=== PATIENT | male | born 1970 | race Caucasian/White ===

== ENCOUNTER → 2024-06-17 | Outpatient (CLI) | payer BC ==
--- NOTE | 2024-06-17 11:21 | CT ---
EXAMINATION TYPE: CT abdomen pelvis wo con DATE OF EXAM: 06/17/2024 COMPARISON: None CLINICAL INDICATION: Male, 54 years old with history of R10.32 LLQ pain; PHH, LLQ pain TECHNIQUE: CT scan of the abdomen and pelvis is performed without oral or IV contrast. CT DLP: [address] CTDI: mGy Automated exposure control for dose reduction was used. FINDINGS: Within the limitations of a non-contrast study, the following observations are made. The lungs are clear. Gallbladder is normal and there is no gallstone, wall thickening, pericholecystic fluid or distention . There is no biliary ductal dilatation. There is no organomegaly of the liver, pancreas, spleen or adrenal glands. There are no renal calcifications or hydronephrosis. The caliber of the abdominal aorta is normal and there is no retroperitoneal adenopathy or hemorrhage . The bowel loops are normal in caliber is no evidence of obstruction. No inflammatory changes are iden tified in the mesentery and there is no free intraperitoneal air or fluid. There is no pelvic mass, free fluid, abscess or adenopathy. There is mild diverticulosis of the colon without CT evidence of diverticulitis. There is mild prosthetic enlargement. The osseous structures and soft tissues are unremarkable. IMPRESSION: 1. No acute changes within the abdomen or pelvis. 2. No renal calcification or hydronephrosis. 3. Mild diverticulosis without CT evidence of diverticulitis. 4. Mild prostatic hypertrophy. [facility], , 06/17/2024 11:19 AM
[2024-06-17 16:01] LABS: HGB 16.9 g/dL (13.0-17.0); MCH 31.2 pg (27.0-32.0); MCHC 33.8 g/dL (32.0-37.0); MCV 92.3 FL (80.0-97.0); Mean Platelet Volume 9.6 FL (9.5-12.2); NRBC Per 100 WBC 0 X 10*3/uL (0.00-0.01); Platelet Count 244 X 10*3/uL (140-440); RBC 5.42 X 10*6/uL (4.40-5.60); WBC 9.49 X 10*3/uL (4.50-10.00)
[2024-06-17 16:12] LABS: ALT 30 U/L (10-49); AST 22 U/L (14-35); Albumin 4.7 g/dL (3.8-4.9); Albumin/Globulin Ratio 1.88 Ratio (1.60-3.17); Alkaline Phosphatase 103 U/L (41-126); BUN/Creat Ratio 11.22 Ratio (12.00-20.00); Blood Urea Nitrogen 10.1 mg/dL (9.0-27.0); Calcium 9.8 mg/dL (8.7-10.3); Carbon Dioxide 22.2 mmol/L (21.6-31.8); Chloride 103 mmol/L (96-109); Globulin 2.5 g/dL (1.6-3.3); Glucose 102 mg/dL (70-110); Potassium 4.3 mmol/L (3.5-5.5); Sodium 138 mmol/L (135-145); Total Bilirubin 1.1 mg/dL (0.3-1.2); Total Protein 7.2 g/dL (6.2-8.2)
== END | disposition home or self-care (01) ==
LOC: RADCTMAIN 10:23
PROVIDERS: ATTEND Family Medicine
DX: N40.0 Benign prostatic hyperplasia without lower urinary tract symptoms (principal); K57.30 Diverticulosis of large intestine without perforation or abscess without bleeding
CPT/HCPCS: 74176; 80053; 85027